=== PATIENT | male | born 1950 | race Asian ===

== ENCOUNTER 2020-05-27 10:16 | Outpatient (CLI) | payer OTHER | END 2020-05-27 21:50 | disposition home or self-care (01) | LOC: INF 10:16 | PROVIDERS: ATTEND Internal Medicine Endocrinology, Diabetes & Metabolism | DX: Z23 Encounter for immunization (principal) | CPT/HCPCS: 96372 ==

== ENCOUNTER 2020-06-24 08:54 | Outpatient (CLI) | payer OTHER | END 2020-06-24 19:31 | disposition home or self-care (01) | LOC: INF 08:54 | PROVIDERS: ATTEND Internal Medicine Endocrinology, Diabetes & Metabolism | DX: Z23 Encounter for immunization (principal) | CPT/HCPCS: 96372 ==

== ENCOUNTER 2020-10-12 13:24 | Outpatient (CLI) | payer OTHER | END 2020-10-12 20:04 | disposition home or self-care (01) | LOC: MRI 13:24 | PROVIDERS: ATTEND Nurse Practitioner Family | DX: M47.817 Spondylosis without myelopathy or radiculopathy, lumbosacral region (principal) ==

== ENCOUNTER 2022-03-17 20:06 | Emergency (ER) | payer OTHER ==
[~2022-03-17] VITALS: Ht 167.6 cm; Wt 142.0 kg
[2022-03-17 20:10] VITALS: TEMP 98.9
[2022-03-17 22:00] VITALS: BP 146/75
== END 2022-03-17 22:00 | disposition home or self-care (01) ==
LOC: ED 20:06
DX: J04.0 Acute laryngitis (principal); Z20.822 Contact with and (suspected) exposure to COVID-19
CPT/HCPCS: 87502; 87635; 87651; 96372; 99283; J1100; U0003